=== PATIENT | male | born 1980 | race Two or more races ===

== ENCOUNTER 2020-03-27 09:22 | Emergency (ER) | payer SELFPAY ==
[~2020-03-27] VITALS: Ht 170.2 cm; Wt 86.2 kg
[2020-03-27] MEDS ORDERED: SODIUM CHLORIDE 0.9% 1,000 ML IV ONE (09:38)
[2020-03-27] MEDS ORDERED: cefTRIAXone 1GM/50ML D5W 50 ML IV ONE (09:45)
[2020-03-27] MEDS ORDERED: TETANUS-DIPTH-ACEL PERTUSSIS 0.5ML SYR Tdap IM ONE (09:45)
[2020-03-27 10:19] LABS: Basophils # (auto) 0.1 10 ^3/uL (0-0.2); Basophils % (auto) 0.5 % (0.0-2.0); Eosinophils # (auto) 0 10 ^3/uL (0-0.8); Hematocrit 38.6 % (41.0-53.0); Hemoglobin 13.2 g/dL (13.5-17.5); Lymphocytes # (auto) 2.2 10 ^3/uL (0.4-5.4); Lymphocytes % (auto) 13.5 % (10.0-50.0); Mean Corpuscular Hgb Conc. 34.3 g/dL (32.0-36.0); Mean Corpuscular Volume 84.3 fL (80.0-100.0); Monocytes # (auto) 0.9 10 ^3/uL (0-1.3); Monocytes % (auto) 5.3 % (0.0-12.0); Neutrophils # (auto) 13.1 10 ^3/uL (1.6-8.6); Neutrophils % (auto) 80.7 % (37.0-80.0); Platelet Count (auto) 269 10^3/uL (140-450); Red Blood Cells 4.57 10^6/uL (4.5-5.90); Red Cell Distribution Width 12.4 % (11.8-14.3); White Blood Cell 16.2 10^3/uL (4.4-10.8)
[2020-03-27 10:43] LABS: Anion Gap 9 (5-15); Blood Urea Nitrogen 43 mg/dL (7-18); Calcium 7.8 mg/dL (8.5-10.1); Carbon Dioxide 22 mmol/L (21-32); Chloride 105 mmol/L (98-107); Glucose 118 mg/dL (74-106); Potassium 3.1 mmol/L (3.5-5.1); Sodium 136 mmol/L (136-145)
[2020-03-27 10:50] LABS: Alanine Aminotransferase 27 U/L (16-61); Alkaline Phosphatase 84 U/L (45-117); Aspartate Aminotransferase 39 U/L (15-37); BUN/Creatinine Ratio 28.5; Bilirubin, Total 1.4 mg/dL (0.2-1.0); GFR African American 66 mL/min; GFR Non-African American 55 mL/min; Total Protein 7.3 g/dL (6.4-8.2)
[2020-03-27] MEDS ORDERED: HYDROmorphone HCL 2 MG/ML VL IV ONE (11:45)
[2020-03-27] MEDS ORDERED: ONDANSETRON HCL 4 MG/2 ML VIAL IV ONE (11:45)
[2020-03-27] MEDS ORDERED: LIDOCAINE 2%HCL (LOCAL ANESTH.) INJ 20ML MDV ONE (12:01)
[2020-03-27] MEDS ORDERED: LIDOCAINE 2% (LOCAL ANESTH.) PF 5ml SDV IJ ONE (12:15)
[2020-03-27] MEDS ORDERED: CLINDAMYCIN 600MG IV 50 ML IV ONE (13:15)
--- NOTE | 2020-03-27 16:26 | NUR ---
ss consult Per ss consult patient not from [place] and has no where to go. 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 Addendum: 03/27/20 at 1627 by Katarzyna SPENCE Amended: Links added.
[2020-03-27 19:20] VITALS: BP 139/87
== END 2020-03-27 20:17 | disposition home or self-care (01) ==
LOC: ER 09:22 → EDBD 09:22 → ER 20:17
DX: S42.402A Unspecified fracture of lower end of left humerus, initial encounter for closed fracture (principal); V09.9XXA Pedestrian injured in unspecified transport accident, initial encounter; Y93.01 Activity, walking, marching and hiking; Y92.410 Unspecified street and highway as the place of occurrence of the external cause; Y99.8 Other external cause status
CPT/HCPCS: 12004; 29105; 36415; 70450; 71045; 73070; 73200; 80053; 80320; 84484; 85025; 90471; 90715; 96365; 96367; 96375; 99285; J0696; J1170; J2405; J3490; J7030